=== PATIENT | male | born 1960 | race Caucasian/White ===

== ENCOUNTER 2017-03-14 09:19 | Emergency (ER) | payer OTHER ==
[2017-03-14 09:28] VITALS: BP 129/72
--- NOTE | 2017-03-14 09:55 | EDM.PDOC ---
ED HPI GENERAL MEDICAL PROBLEM - General Chief Complaint: Chest Pain Stated Complaint: CHEST PAIN Time Seen by Provider: 03/14/17 09:31 Source of Information: Reports: Patient History Limitations: Reports: No Limitations - History of Present Illness INITIAL COMMENTS - FREE TEXT/NARRATIVE: The patient is a 57-year-old male with a chief complaint of chest pain. He states that he noticed it yesterday when he woke up. The left side of his chest hurts. The pain is kind of a dull pressure. Pain has been constant. Moderate severity. No exacerbating or relieving factors. No history of similar symptoms previously. No provoking factors. Nonradiating. No shortness of breath. No cough. No fever or recent illness. No abdominal pain or vomiting. No lower extremity pain or swelling. No history of cardiac disease. He does have a history of a prior CVA with hemiparesis that resolved. Left Chest Pain Score (Numeric/FACES): 8 - Related Data Allergies Allergy/AdvReac Type Severity Reaction Status Date / Time No Known Allergies Allergy Verified 03/14/17 09:25 Home Meds: Home Meds Aspirin [Ecotrin] 325 mg PO DAILY 03/14/17 [History] Past Medical History - Past Health History Medical/Surgical History: Denies Medical/Surgical History HEENT History: Reports: Impaired Vision Cardiovascular History: Reports: High Cholesterol Neurological History: Reports: CVA - Infectious Disease History Infectious Disease History: Reports: Chicken Pox, Measles - Past Surgical History Other Cardiovascular Surgeries/Procedures: stroke x 2 Social & Family History - Tobacco Use Smoking Status *Q: Never Smoker Second Hand Smoke Exposure: No - Caffeine Use Caffeine Use: Reports: Coffee - Recreational Drug Use Recreational Drug Use: No ED ROS GENERAL - Review of Systems Review Of Systems: See Below Constitutional: Denies: Fever HEENT: Reports: No Symptoms Respiratory: Denies: Shortness of Breath Cardiovascular: Reports: Chest Pain Endocrine: Reports: No Symptoms GI/Abdominal: Denies: Abdominal Pain : Reports: No Symptoms Musculoskeletal: Reports: No Symptoms Skin: Reports: No Symptoms Neurological: Reports: No Symptoms ED EXAM, GENERAL - Physical Exam Exam: See Below Exam Limited By: No Limitations General Appearance: Alert, WD/WN, No Apparent Distress Eye Exam: Bilateral Eye: Normal Inspection Ears: Normal External Exam Nose: Normal Inspection Throat/Mouth: Normal Inspection, Normal Voice, No Airway Compromise Head: Atraumatic, Normocephalic Neck: Normal Inspection, Supple Respiratory/Chest: No Respiratory Distress, Lungs Clear, Normal Breath Sounds, Chest Non-Tender Cardiovascular: Normal Peripheral Pulses, Regular Rate, Rhythm, No Edema, No Murmur GI/Abdominal: Soft, Non-Tender, No Distention Back Exam: Normal Inspection Extremities: Normal Inspection. No: Pedal Edema, Leg Pain Neurological: Alert, Oriented, Normal Cognition, No Motor/Sensory Deficits Psychiatric: Normal Affect, Normal Mood Skin Exam: Warm, Dry, Intact, Normal Color, No Rash Course - Vital Signs Last Recorded V/S: Last Vital Signs Temp 36.2 C 03/14/17 09:25 Pulse 88 03/14/17 09:25 Resp 16 03/14/17 09:25 BP 129/72 03/14/17 09:25 Pulse Ox 96 03/14/17 09:25 - Orders/Labs/Meds Orders: Active Orders 24 hr Category Date Time Status Chest 1V Frontal [CR] Stat Exams 03/14/17 09:34 Taken Labs: Laboratory Tests 03/14/17 03/14/17 03/14/17 Range/Units 09:46 09:46 11:50 WBC 7.56 (4.23-9.07) K/mm3 RBC 4.58 L (4.63-6.08) M/mm3 Hgb 14.6 (13.7-17.5) gm/L Hct 43.1 (40.1-51.0) % MCV 94.1 H (79.0-92.2) fl MCH 31.9 (25.7-32.2) pg MCHC 33.9 (32.2-35.5) g/dl RDW Std Deviation 43.1 (35.1-43.9) fL Plt Count 284 (163-337) K/mm3 MPV 10.1 (9.4-12.3) fl Neut % (Auto) 54.3 (34.0-67.9) % Lymph % (Auto) 32.4 (21.8-53.1) % Nelson % (Auto) 10.3 (5.3-12.2) % Eos % (Auto) 2.2 (0.8-7.0) Baso % (Auto) 0.7 (0.1-1.2) % Neut # (Auto) 4.10 (1.78-5.38) K/mm3 Lymph # (Auto) 2.45 (1.32-3.57) K/mm3 Nelson # (Auto) 0.78 (0.30-0.82) K/mm3 Eos # (Auto) 0.17 (0.04-0.54) K/mm3 Baso # (Auto) 0.05 (0.01-0.08) K/mm3 Sodium 138 (136-145) mEq/L Potassium 4.0 (3.5-5.1) mEq/L Chloride 105 (98-107) mEq/L Carbon Dioxide 25 (21-32) mEq/L Anion Gap 12.0 (5-15) BUN 15 (7-18) mg/dL Creatinine 1.3 (0.7-1.3) mg/dL Est Cr Clr Drug Dosing 67.98 mL/min Estimated GFR (MDRD) 57 (>60) mL/min BUN/Creatinine Ratio 11.5 L (14-18) Glucose 116 H (74-106) mg/dL Calcium 9.3 (8.5-10.1) mg/dL Total Bilirubin 0.4 (0.2-1.0) mg/dL AST 20 (15-37) U/L ALT 26 (16-63) U/L Alkaline Phosphatase 62 (46-116) U/L Troponin I < 0.017 < 0.017 (0.00-0.056) ng/mL Total Protein 6.6 (6.4-8.2) g/dl Albumin 3.4 (3.4-5.0) g/dl Globulin 3.2 gm/dL Albumin/Globulin Ratio 1.1 (1-2) Meds: Medications Discontinued Medications Generic Name Dose Route Start Last Admin Trade Name Freq PRN Reason Stop Dose Admin Aspirin 324 mg 03/14/17 09:58 03/14/17 10:12 Aspirin PO 03/14/17 09:59 324 mg ONETIME ONE Administration - Re-Assessments/Exams Free Text/Narrative Re-Assessment/Exam: 03/14/17 12:55 Chest x-ray shows normal cardiac silhouette, no infiltrate or pneumothorax, normal study. EKG shows normal sinus rhythm, no significant ST/T-wave abnormality, no evidence of acute ischemia. Troponin 2 is negative. Remaining labs are also unremarkable. Patient's cardiovascular risk factors include hypercholesterolemia, possible family history, and his personal history of CVA given negative workup here today patient will follow up with his primary doctor for further care. Departure - Departure Time of Disposition: 12:30 Disposition: Home, Self-Care 01 Clinical Impression: Chest pain Qualifiers: Chest pain type: unspecified Qualified Code(s): R07.9 - Chest pain, unspecified Instructions: Nonspecific Chest Pain, [id number] Referrals: Zhen Basilio MD [Primary Care Provider] - Forms: ED Department Discharge Additional Instructions: 1. Follow up with your primary doctor as soon as possible for further care 2. Return to the ED if you have difficulty breathing, worsening chest pain, or any other concerning symptoms - My Orders Last 24 Hours: My Active Orders 03/14/17 09:34 Chest 1V Frontal [CR] Stat - Assessment/Plan Last 24 Hours: My Active Orders 03/14/17 09:34 Chest 1V Frontal [CR] Stat
[2017-03-14] MEDS ORDERED: Aspirin 81 MG Tab.Chew PO ONE (09:58)
--- NOTE | 2017-03-14 15:43 | CR ---
Chest: Portable view of the chest was obtained. Comparison: Prior chest x-ray of 05/21/[address] performed on 05/11/15. Heart size and mediastinum are normal. Lungs are clear. Mild degenerative spurring is seen within the spine. Impression: 1. Nothing acute is identified on portable chest x-ray. Diagnostic code #2
== END 2017-03-14 12:50 | disposition home or self-care (01) ==
LOC: JD.ED 09:19
DX: R07.9 Chest pain, unspecified (principal); E78.00 Pure hypercholesterolemia, unspecified; Z79.82 Long term (current) use of aspirin
CPT/HCPCS: 36415; 71010; 80053; 84484; 85025; 99285; A9270; 93010; 99284

== ENCOUNTER 2017-03-29 06:58 | Emergency (ER) | payer OTHER ==
[2017-03-29 07:20] VITALS: BP 136/77
[2017-03-29] MEDS ORDERED: Sodium Chloride 0.9% 10 ML Syringe FLUSH PRN (07:29)
[2017-03-29] MEDS ORDERED: Sodium Chloride 0.9% 1,000 ML IV SCH (07:30)
[2017-03-29] MEDS ORDERED: Albuterol/Ipratropium 3.0-0.5 MG/3 ML Neb Soln NEB ONE (07:32)
--- NOTE | 2017-03-29 07:36 | EDM.PDOC ---
ED HPI GENERAL MEDICAL PROBLEM - General Chief Complaint: Respiratory Problem Stated Complaint: COUGH Time Seen by Provider: 03/29/17 07:21 Source of Information: Reports: Patient History Limitations: Reports: No Limitations - History of Present Illness INITIAL COMMENTS - FREE TEXT/NARRATIVE: The patient presents with fever, chills, cough, and headache. He also has no appetite and he lost about 13 pounds. He has a right sided headache. It is better now. He has chest pain that is worse with coughing. He feels short of breath. He has no nausea, vomiting or abdominal pain. He has no bodyaches. He just feels tired and weak. He had a stroke a year and 1/2 ago. He has an event recorder implanted. He has no history of asthma or COPD. He does not smoke. This has all been going on for 1 week. Onset: Gradual Duration: Week(s): (1) Location: Reports: Chest Quality: Reports: Other (Tightness) Severity: Moderate Improves with: Reports: Immobilization Worsens with: Reports: Breathing (and cough) Associated Symptoms: Reports: Chest Pain, Cough, Fever/Chills, Headaches, Shortness of Breath. Denies: Nausea/Vomiting Chest Pain Score (Numeric/FACES): 4 - Related Data Allergies Allergy/AdvReac Type Severity Reaction Status Date / Time No Known Allergies Allergy Verified 03/14/17 09:25 Home Meds: Home Meds Aspirin [Ecotrin] 325 mg PO DAILY 03/14/17 [History] Azithromycin [IJD: Azithromycin] 250 mg PO DAILY #6 tab 03/29/17 [Rx] Codeine/Promethazine [Phenergan with Codeine] 5 - 10 ml PO Q6HR PRN #300 ml [Rx] Past Medical History - Past Health History Medical/Surgical History: Denies Medical/Surgical History HEENT History: Reports: Impaired Vision Other HEENT History: wears eyeglasses Cardiovascular History: Reports: High Cholesterol Neurological History: Reports: CVA - Infectious Disease History Infectious Disease History: Reports: Chicken Pox, Measles - Past Surgical History Other Cardiovascular Surgeries/Procedures: stroke x 2, implanted cardiac recorder. Social & Family History - Tobacco Use Smoking Status *Q: Never Smoker Second Hand Smoke Exposure: No - Caffeine Use Caffeine Use: Reports: Coffee, Soda - Recreational Drug Use Recreational Drug Use: No ED ROS GENERAL - Review of Systems Review Of Systems: See Below Constitutional: Reports: Fever, Chills, Malaise, Weakness, Fatigue HEENT: Reports: No Symptoms Respiratory: Reports: Shortness of Breath, Cough Cardiovascular: Reports: Chest Pain Endocrine: Reports: Fatigue GI/Abdominal: Reports: Anorexia. Denies: Abdominal Pain, Diarrhea, Nausea, Vomiting : Reports: No Symptoms Musculoskeletal: Reports: No Symptoms Skin: Reports: No Symptoms Neurological: Reports: No Symptoms ED EXAM, GENERAL - Physical Exam Exam: See Below Exam Limited By: No Limitations General Appearance: Alert, No Apparent Distress Ears: Normal External Exam Nose: Normal Inspection Head: Atraumatic, Normocephalic Neck: Normal Inspection Respiratory/Chest: No Respiratory Distress, Wheezing (mild) Cardiovascular: Regular Rate, Rhythm, No Edema, No Murmur GI/Abdominal: Soft, Non-Tender, No Organomegaly, No Mass Back Exam: Normal Inspection Extremities: Normal Inspection EKG INTERPRETATION EKG Date: 03/29/17 Time: 07:52 Rhythm: NSR Rate (Beats/Min): 90 [place]: Normal P-Wave: Present QRS: Normal ST-T: Normal QT: Normal EKG Interpretation Comments: Q waves in the anterior leads Course - Vital Signs Last Recorded V/S: Last Vital Signs Temp 97.6 F 03/29/17 07:05 Pulse 92 03/29/17 07:05 Resp 12 03/29/17 07:05 BP 136/77 03/29/17 07:05 Pulse Ox 97 03/29/17 07:32 - Orders/Labs/Meds Orders: Active Orders 24 hr Category Date Time Status Cardiac Monitoring [RC] . DIRECTED Care 03/29/17 07:29 Active EKG Documentation Completion [RC] STAT Care 03/29/17 07:30 Active Peripheral IV Care [RC] . DIRECTED Care 03/29/17 07:30 Active RT Aerosol Therapy [RC] ASDIRECTED Care 03/29/17 07:32 Active Chest 2V [CR] Stat Exams 03/29/17 07:30 Taken Sodium Chloride 0.9% [Normal Saline] 1,000 ml Med 03/29/17 07:30 Active IV .BOLUS Sodium Chloride 0.9% [Saline Flush] Med 03/29/17 07:29 Active 10 ml FLUSH ASDIRECTED PRN Peripheral IV Insertion Adult [OM.PC] Stat Oth 03/29/17 07:29 Ordered Medication Orders Sodium Chloride (Normal Saline) 1,000 mls @ 1,000 mls/hr IV .BOLUS BHASKAR Last Admin: 03/29/17 07:57 Dose: 1,000 mls/hr Sodium Chloride (Saline Flush) 10 ml FLUSH ASDIRECTED PRN PRN Reason: Keep Vein Open Last Admin: 03/29/17 08:00 Dose: 10 ml Labs: Laboratory Tests 03/29/17 03/29/17 Range/Units 07:50 07:50 WBC 9.96 H (4.23-9.07) K/mm3 RBC 4.34 L (4.63-6.08) M/mm3 Hgb 13.6 L (13.7-17.5) gm/L Hct 40.1 (40.1-51.0) % MCV 92.4 H (79.0-92.2) fl MCH 31.3 (25.7-32.2) pg MCHC 33.9 (32.2-35.5) g/dl RDW Std Deviation 41.4 (35.1-43.9) fL Plt Count 319 (163-337) K/mm3 MPV 9.8 (9.4-12.3) fl Neut % (Auto) 71.4 H (34.0-67.9) % Lymph % (Auto) 13.6 L (21.8-53.1) % Sumner % (Auto) 13.0 H (5.3-12.2) % Eos % (Auto) 1.6 (0.8-7.0) Baso % (Auto) 0.2 (0.1-1.2) % Neut # (Auto) 7.12 H (1.78-5.38) K/mm3 Lymph # (Auto) 1.35 (1.32-3.57) K/mm3 [place]ner # (Auto) 1.29 H (0.30-0.82) K/mm3 Eos # (Auto) 0.16 (0.04-0.54) K/mm3 Baso # (Auto) 0.02 (0.01-0.08) K/mm3 Sodium 138 (136-145) mEq/L Potassium 4.0 (3.5-5.1) mEq/L Chloride 101 (98-107) mEq/L Carbon Dioxide 23 (21-32) mEq/L Anion Gap 18.0 H (5-15) BUN 20 H (7-18) mg/dL Creatinine 1.3 (0.7-1.3) mg/dL Est Cr Clr Drug Dosing 67.95 mL/min Estimated GFR (MDRD) 57 (>60) mL/min BUN/Creatinine Ratio 15.4 (14-18) Glucose 107 H (74-106) mg/dL Calcium 9.0 (8.5-10.1) mg/dL Total Bilirubin 0.5 (0.2-1.0) mg/dL AST 19 (15-37) U/L ALT 22 (16-63) U/L Alkaline Phosphatase 57 (46-116) U/L Troponin I < 0.017 (0.00-0.056) ng/mL Total Protein 7.4 (6.4-8.2) g/dl Albumin 2.9 L (3.4-5.0) g/dl Globulin 4.5 gm/dL Albumin/Globulin Ratio 0.6 L (1-2) Meds: Medications Generic Name Dose Route Start Last Admin Trade Name Freq PRN Reason Stop Dose Admin Sodium Chloride 1,000 mls @ 1,000 mls/hr 03/29/17 07:30 03/29/17 07:57 Normal Saline IV 1,000 mls/hr .BOLUS BHASKAR Administration Sodium Chloride 10 ml 03/29/17 07:29 03/29/17 08:00 Saline Flush FLUSH 10 ml ASDIRECTED PRN Administration Keep Vein Open Discontinued Medications Generic Name Dose Route Start Last Admin Trade Name Freq PRN Reason Stop Dose Admin Albuterol/Ipratropium 3 ml 03/29/17 07:32 03/29/17 07:48 Duoneb 3.0-0.5 Mg/3 Ml NEB 03/29/17 07:33 3 ml ONETIME ONE Administration - Re-Assessments/Exams Free Text/Narrative Re-Assessment/Exam: 03/29/17 07:35 I ordered an IV NS 1L bolus, EKG, CXR, duoneb and labs. 03/29/17 09:10 His EKG shows nothing acute. His CXR shows no infiltrate. His WBC was slightly elevated at 9.96. His Hgb was a little low at 13.6. His CMP was negative. His troponin was negative. He feels better. He has bronchitis. I will get him on some zithromax and phenergan with codeine. Departure - Departure Time of Disposition: 09:11 Disposition: Admitted As Inpatient 65 Condition: Good Clinical Impression: Bronchitis - Discharge Information Prescriptions: Codeine/Promethazine [Phenergan with Codeine] 5 - 10 ml PO Q6HR PRN #300 ml PRN Reason: Cough Azithromycin [IJD: Azithromycin] 250 mg PO DAILY #6 tab Referrals: Zhen Basilio MD [Primary Care Provider] - 1 Week Forms: ED Department Discharge, ED Return to Work/School Form Additional Instructions: Take the zithromax 2 pills on day 1 and 1 pill on day 2 through 5. Take the phenergan with codeine 5 to 10mLs every 6 hours as needed for cough. Please return if you are worse. - My Orders Last 24 Hours: My Active Orders 03/29/17 07:29 Cardiac Monitoring [RC] . DIRECTED Sodium Chloride 0.9% [Saline Flush] 10 ml FLUSH ASDIRECTED PRN Peripheral IV Insertion Adult [OM.PC] Stat 03/29/17 07:30 EKG Documentation Completion [RC] STAT Peripheral IV Care [RC] . DIRECTED Chest 2V [CR] Stat Sodium Chloride 0.9% [Normal Saline] 1,000 ml IV .BOLUS 03/29/17 07:32 RT Aerosol Therapy [RC] ASDIRECTED - Assessment/Plan Last 24 Hours: My Active Orders 03/29/17 07:29 Cardiac Monitoring [RC] . DIRECTED Sodium Chloride 0.9% [Saline Flush] 10 ml FLUSH ASDIRECTED PRN Peripheral IV Insertion Adult [OM.PC] Stat 03/29/17 07:30 EKG Documentation Completion [RC] STAT Peripheral IV Care [RC] . DIRECTED Chest 2V [CR] Stat Sodium Chloride 0.9% [Normal Saline] 1,000 ml IV .BOLUS 03/29/17 07:32 RT Aerosol Therapy [RC] ASDIRECTED
--- NOTE | 2017-03-30 10:42 | CR ---
Chest: Two views of the chest were obtained. Comparison: Prior chest x-ray of 03/14/17. Patchy increased density within the left base is seen. Lungs otherwise are clear. Heart size and mediastinum are normal. Slight degenerative change is noted within the spine. Impression: 1. Patchy increased density within the left lung base. Please correlate if patient has any symptoms of pneumonia. Findings otherwise could represent changes from aspiration or atelectasis. Diagnostic code #3
== END 2017-03-29 09:42 | disposition critical access hospital (66) ==
LOC: JD.ED 06:58
DX: J40 Bronchitis, not specified as acute or chronic (principal); E78.00 Pure hypercholesterolemia, unspecified; Z79.82 Long term (current) use of aspirin; Z79.2 Long term (current) use of antibiotics
CPT/HCPCS: 36415; 71020; 80053; 84484; 85025; 87804; 93005; 94640; 96360; 99285; J7040; J7050; 93010; 99284

== ENCOUNTER 2021-02-01 12:14 | Emergency (ER) | payer OTHER ==
[2021-02-01] MEDS ORDERED: Sodium Chloride 0.9% 10 ML Syringe FLUSH PRN (13:17)
--- NOTE | 2021-02-01 13:48 | CT ---
Head CT Technique: Multiple axial sections through the brain were obtained. Intravenous contrast was not utilized. Reconstructed coronal and sagittal images were obtained. Comparison: Prior head CT study of 05/05/15. Findings: Ventricles along with basal cisterns and sulci over the convexities are felt to be within normal limits for the patient's age. Small lacunar infarct is noted within the left basal ganglia involving the head of the caudate nucleus. Low density is also seen within the medial anterior left parietal region. No additional abnormal parenchymal densities are seen. No evidence of intracranial hemorrhage is seen. No midline shift or mass-effect is seen. Mild atherosclerotic calcification is seen within the carotid siphon. No acute calvarial abnormality is seen. Visualized paranasal sinuses and mastoid sinuses show nothing acute. Impression: 1. Two small old infarcts, one within the head of the caudate nucleus and second within the medial anterior left parietal region. 2. No acute intracranial abnormality is appreciated. Note: If patient's symptoms are sufficient, MRI study could then be considered. Diagnostic code #3
[2021-02-01] MEDS ORDERED: Gadobenate Dimeglumine 529 MG/ML 20 ML SDV IVPUSH ONE (15:47)
[2021-02-01] MEDS ORDERED: Sodium Chloride 0.9% 10 ML Syringe FLUSH SCH (16:00)
--- NOTE | 2021-02-01 16:04 | MR ---
MR angiogram of brain Technique: Noncontrast MR angiogram study of the brain was obtained centered at the [place] of [place]. Reconstructed coronal and sagittal images were obtained. Findings: Basilar artery is supplied by the right vertebral artery. Left posterior cerebral artery is supplied by the basilar artery. Right posterior cerebral artery is supplied by a smaller posterior communicating branch from the anterior circulation. Smaller posterior right cerebral artery is noted with normal-sized left posterior cerebral artery. Carotid arteries are patent into the middle cerebral arteries. Right A1 segment is smaller than the left A1 segment. Anterior cerebral arteries are normal. Middle cerebral arteries are also normal. No discrete aneurysm is seen. Impression: 1. Small posterior communicating branch supplying the right posterior cerebral artery from the anterior circulation. Proximal right cerebral artery is smaller than the left cerebral artery. 2. Small right A1 segment supplying the anterior communicating artery. 3. Communicating artery supplied by a right vertebral artery. Left vertebral artery is not seen on this exam. 4. Other portions of the MR angiogram study appear within normal limits. Diagnostic code #3
--- NOTE | 2021-02-01 16:04 | MR ---
MRI brain Technique: T1 sagittal; T2, T2 FLAIR, T1 and diffusion axial; T1 coronal as well as gradient echo coronal images were obtained. Findings: Ventricles along with basal cisterns and sulci over the convexities appear within normal limits for the patient's age. Very small left vertebral artery is seen with dominant right vertebral artery supplying the basilar artery. Normal signal void is seen within the major cerebral arteries within the skull base. Small area of increased signal is seen within the posterior left basal ganglia compatible with small vessel ischemic demyelination change. Minimal signal is seen within portions of the left periventricular white matter compatible with small vessel ischemic demyelination change. Slightly larger area of increased signal is seen within the posterior left parietal region anteriorly the medial aspect. This is compatible with previous small infarct. Small low signal abnormality is seen within the left head of the caudate nucleus which is compatible with old infarct. There are no acute diffusion abnormalities being seen. No acute paranasal sinus findings or mastoid sinus findings are seen. Impression: 1. Small areas of signal are seen which appear to be due to small vessel ischemic demyelination change. Two small abnormalities compatible with old infarcts are seen on CT study. 2. There are no acute diffusion abnormalities being identified. 2. Small left vertebral artery with dominant right vertebral artery is noted. 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 Diagnostic code #2
--- NOTE | 2021-02-01 16:41 | MR ---
MR angiogram of neck Technique: MR angiogram study was obtained of the neck following contrast administration . Reconstructed coronal and sagittal images were obtained. Comparison: No prior neck imaging. Findings: There is focal narrowing of the proximal external carotid artery on the right side which has stenosis of approximately 58 percent. Internal carotid artery on the right side shows only minimal stenosis which is felt to be of no hemodynamic significance. Left internal carotid artery shows long area of narrowing. Proximal internal carotid artery shows narrowing of around 57 percent. Common carotid arteries are patent. Brachiocephalic and subclavian arteries are patent. Very small left vertebral artery is seen most likely developmental. Very dominant right vertebral artery is seen supplying the basilar artery. Impression: 1. 58 percent narrowing within the right external carotid artery. 2. 57 percent narrowing within the proximal left internal carotid artery which shows long stenosis. 3. 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 Diagnostic code #3
--- NOTE | 2021-02-01 17:07 | EDM.PDOC ---
ED HPI GENERAL MEDICAL PROBLEM - General Chief Complaint: Neuro Symptoms/Deficits Stated Complaint: NUMBNESS TO HANDS Time Seen by Provider: 02/01/21 13:09 Source of Information: Reports: Patient History Limitations: Reports: No Limitations - History of Present Illness INITIAL COMMENTS - FREE TEXT/NARRATIVE: The patient presents with left arm numbness. He was at work about 10am and grabbed his glasses and felt numbness in his left hand and it felt like someone was pulling his left hand. That lasted about 5 minutes. He went to the nurses office. He works at [employer]. She did some blood pressures and his blood pressure did go down when he stood up. He felt a little lightheaded with this. He tried to get into his doctor but they were busy. He had a CVA 6 years ago. The stroke left no neurologic deficits. He wore a loop recorder for 3 years and they found nothing. He was also on aspirin. He stopped the aspirin a few years ago. He has no fever, chills, cough, chest pain, headache, shortness of breath, abdominal pain, nausea or vomiting. He has no numbness or weakness anywhere else. He has no trouble speaking. Onset: Sudden Duration: Minutes: (5) Severity: Mild Improves with: Reports: None Worsens with: Reports: None Associated Symptoms: Reports: No Other Symptoms Headache Pain Score (Numeric/FACES): 6 - Related Data Allergies Allergy/AdvReac Type Severity Reaction Status Date / Time No Known Allergies Allergy Verified 02/01/21 13:17 Home Meds: Home Meds atorvaSTATin Calcium [Lipitor] 20 mg PO DAILY #30 tablet 02/01/21 [Rx] Past Medical History - Past Health History Medical/Surgical History: Denies Medical/Surgical History HEENT History: Reports: Impaired Vision Other HEENT History: wears eyeglasses Cardiovascular History: Reports: High Cholesterol Neurological History: Reports: CVA Other Neuro History: 2014 - Infectious Disease History Infectious Disease History: Reports: Chicken Pox, Measles - Past Surgical History Other Cardiovascular Surgeries/Procedures: stroke x 2, implanted cardiac recorder. Social & Family History - Tobacco Use Tobacco Use Status *Q: Never Tobacco User - Caffeine Use Caffeine Use: Reports: Coffee, Soda ED ROS GENERAL - Review of Systems Review Of Systems: See Below Constitutional: Reports: No Symptoms HEENT: Reports: No Symptoms Respiratory: Reports: No Symptoms Cardiovascular: Reports: No Symptoms Endocrine: Reports: No Symptoms GI/Abdominal: Reports: No Symptoms : Reports: No Symptoms Musculoskeletal: Reports: No Symptoms Neurological: Reports: Other (left hand numbness) ED EXAM, NEURO - Physical Exam Exam: See Below Exam Limited By: No Limitations General Appearance: Alert, No Apparent Distress Ears: Normal External Exam Nose: Normal Inspection Head Exam: Atraumatic, Normocephalic Neck: Normal Inspection Respiratory/Chest: No Respiratory Distress, Lungs Clear, Normal Breath Sounds Cardiovascular: Regular Rate, Rhythm, No Edema, No Murmur GI/Abdominal: Soft, Non-Tender, No Organomegaly, No Mass Neurological: Alert, No Motor/Sensory Deficits, Oriented x 3 #1 Interpretation EKG Date: 02/01/21 Time: 13:58 Rhythm: NSR Rate (Beats/Min): 60 [place]: Normal P-Wave: Present QRS: Normal ST-T: Normal QT: Normal Course - Vital Signs Last Recorded V/S: Last Vital Signs Temp 98.5 F 02/01/21 13:12 Pulse 64 02/01/21 14:00 Resp 24 H 02/01/21 14:00 BP 125/88 02/01/21 14:00 Pulse Ox 98 02/01/21 14:00 - Orders/Labs/Meds Orders: Active Orders 24 hr Category Date Time Status Cardiac Monitoring [RC] . DIRECTED Care 02/01/21 13:17 Active Peripheral IV Care [RC] . DIRECTED Care 02/01/21 13:17 Active Sodium Chloride 0.9% [Saline Flush] Med 02/01/21 13:17 Active 10 ml FLUSH ASDIRECTED PRN Sodium Chloride 0.9% [Saline Flush] Med 02/01/21 16:00 Active 20 ml FLUSH ASDIRECTED Peripheral IV Insertion Adult [OM.PC] Stat Oth 02/01/21 13:17 Ordered Medication Orders Sodium Chloride (Sodium Chloride 0.9% 10 Ml Syringe) 10 ml FLUSH ASDIRECTED PRN PRN Reason: Keep Vein Open Last Admin: 02/01/21 14:10 Dose: 10 ml Documented by: CHUY Sodium Chloride (Sodium Chloride 0.9% 10 Ml Syringe) 20 ml FLUSH ASDIRECTED BHASKAR Last Admin: 02/01/21 15:57 Dose: 20 ml Documented by: ART Labs: Laboratory Tests 02/01/21 02/01/21 02/01/21 Range/Units 13:24 13:24 13:24 WBC 8.59 (4.23-9.07) K/mm3 RBC 4.76 (4.63-6.08) M/mm3 Hgb 15.2 D (13.7-17.5) gm/dl Hct 45.8 (40.1-51.0) % MCV 96.2 H D (79.0-92.2) fl MCH 31.9 (25.7-32.2) pg MCHC 33.2 (32.2-35.5) g/dl RDW Std Deviation 45.3 H (35.1-43.9) fL Plt Count 301 (163-337) K/mm3 MPV 10.9 (9.4-12.3) fl Neut % (Auto) 55.6 (34.0-67.9) % Lymph % (Auto) 30.3 (21.8-53.1) % [place] % (Auto) 10.7 (5.3-12.2) % Eos % (Auto) 2.7 (0.8-7.0) Baso % (Auto) 0.6 (0.1-1.2) % Neut # (Auto) 4.78 (1.78-5.38) K/mm3 Lymph # (Auto) 2.60 (1.32-3.57) K/mm3 [place] # (Auto) 0.92 H (0.30-0.82) K/mm3 Eos # (Auto) 0.23 (0.04-0.54) K/mm3 Baso # (Auto) 0.05 (0.01-0.08) K/mm3 PT 9.8 (9.7-12.0) SECONDS INR < 0.93 APTT 23.9 (21.7-31.4) SECONDS Sodium 140 (136-145) mEq/L Potassium 5.0 (3.5-5.1) mEq/L Chloride 105 (98-107) mEq/L Carbon Dioxide 29 (21-32) mEq/L Anion Gap 11.0 (5-15) BUN 14 (7-18) mg/dL Creatinine 1.2 (0.7-1.3) mg/dL Est Cr Clr Drug Dosing 70.06 mL/min Estimated GFR (MDRD) > 60 (>60) mL/min BUN/Creatinine Ratio 11.7 L (14-18) Glucose 92 (70-99) mg/dL POC Glucose (70-99) mg/dL Calcium 9.2 (8.5-10.1) mg/dL Total Bilirubin 0.4 (0.2-1.0) mg/dL AST 21 (15-37) U/L ALT 34 (16-63) U/L Alkaline Phosphatase 63 (46-116) U/L Troponin I < 0.017 (0.00-0.056) ng/mL Total Protein 7.3 (6.4-8.2) g/dl Albumin 3.7 (3.4-5.0) g/dl Globulin 3.6 gm/dL Albumin/Globulin Ratio 1.0 (1-2) 02/01/21 Range/Units 13:24 WBC (4.23-9.07) K/mm3 RBC (4.63-6.08) M/mm3 Hgb (13.7-17.5) gm/dl Hct (40.1-51.0) % MCV (79.0-92.2) fl MCH (25.7-32.2) pg MCHC (32.2-35.5) g/dl RDW Std Deviation (35.1-43.9) fL Plt Count (163-337) K/mm3 MPV (9.4-12.3) fl Neut % (Auto) (34.0-67.9) % Lymph % (Auto) (21.8-53.1) % [place] % (Auto) (5.3-12.2) % Eos % (Auto) (0.8-7.0) Baso % (Auto) (0.1-1.2) % Neut # (Auto) (1.78-5.38) K/mm3 Lymph # (Auto) (1.32-3.57) K/mm3 [place] # (Auto) (0.30-0.82) K/mm3 Eos # (Auto) (0.04-0.54) K/mm3 Baso # (Auto) (0.01-0.08) K/mm3 PT (9.7-12.0) SECONDS INR APTT (21.7-31.4) SECONDS Sodium (136-145) mEq/L Potassium (3.5-5.1) mEq/L Chloride (98-107) mEq/L Carbon Dioxide (21-32) mEq/L Anion Gap (5-15) BUN (7-18) mg/dL Creatinine (0.7-1.3) mg/dL Est Cr Clr Drug Dosing mL/min Estimated GFR (MDRD) (>60) mL/min BUN/Creatinine Ratio (14-18) Glucose (70-99) mg/dL POC Glucose 87 (70-99) mg/dL Calcium (8.5-10.1) mg/dL Total Bilirubin (0.2-1.0) mg/dL AST (15-37) U/L ALT (16-63) U/L Alkaline Phosphatase (46-116) U/L Troponin I (0.00-0.056) ng/mL Total Protein (6.4-8.2) g/dl Albumin (3.4-5.0) g/dl Globulin gm/dL Albumin/Globulin Ratio (1-2) Meds: Medications Generic Name Dose Route Start Last Admin Trade Name Freq PRN Reason Stop Dose Admin Sodium Chloride 10 ml 02/01/21 13:17 02/01/21 14:10 Sodium Chloride 0.9% 10 Ml Syringe FLUSH 10 ml ASDIRECTED PRN Administration Keep Vein Open Sodium Chloride 20 ml 02/01/21 16:00 02/01/21 15:57 Sodium Chloride 0.9% 10 Ml Syringe FLUSH 20 ml ASDIRECTED [place]AR Administration Discontinued Medications Generic Name Dose Route Start Last Admin Trade Name Freq PRN Reason Stop Dose Admin Gadobenate Dimeglumine 20 ml 02/01/21 15:47 02/01/21 15:57 Gadobenate Dimeglumine 529 Mg/Ml 20 Ml Sdv IVPUSH 02/01/21 15:48 20 ml ONETIME ONE Administration - Re-Assessments/Exams Free Text/Narrative Re-Assessment/Exam: 02/01/21 17:09 I ordered an EKG, CT of his head and labs. His last time known well was 10am this morning. His EKG shows a NSR with no acute changes. His CBC and CMP look good. His troponin is negative. His PT and PTT look good. The CT of his head shows two small old infarcts, one within the head of he caudate nucleus and second within the medial anterior left parietal region. No acute intracranial abnormality is appreciated. I was able to get an MRI of his brain and it showed small area of signal are seen which appear to be due to small vessel ischemic demyelination change. Two small abnormalities compatible with old infarcts are seen on CT study. There are no acute diffusion abnormalities being identified. Small left vertebral artery with dominant right vertebral artery is noted. 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 His MRI angio of his Head shows small posterior communicating branch supplying the right posterior cerebral artery from the anterior circulation. Proximal right cerebral artery is smaller than the left cerebral artery. Small right A1 segment supplying the anterior communicating artery. Communicating artery supplied by a right vertebral artery. Left vertebral artery is not seen on this exam. Other portions of the MR angiogram study appear within normal limits. The MR angiogram of the neck shows 58% narrowing within the right external carotid artery. 57% narrowing within the proximal left internal carotid artery which shows long stenosis. 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 I called [facility] in [place] and talked with Dr Turner the neurologist control valve technician and he recommended the patient go on aspirin and a statin. I will discharge him home. Departure - Departure Time of Disposition: 17:30 Disposition: Home, Self-Care 01 Condition: Good Clinical Impression: TIA (transient ischemic attack) - Discharge Information *PRESCRIPTION DRUG MONITORING PROGRAM REVIEWED*: Not Applicable *COPY OF PRESCRIPTION DRUG MONITORING REPORT IN PATIENT VINCENT: Not Applicable Prescriptions: atorvaSTATin Calcium [Lipitor] 20 mg PO DAILY #30 tablet Referrals: Zhen Basilio MD [Primary Care Provider] - 1 Week Forms: ED Department Discharge Additional Instructions: Take an aspirin daily. 81 mg is fine. Take lipitor 20mg daily. Follow up with Dr Basilio within a week. Please return if you are worse. Sepsis Event Note (ED) - Evaluation Sepsis Screening Result: No Definite Risk - Focused Exam Vital Signs: Vital Signs Temp Pulse Resp BP Pulse Ox 02/01/21 14:00 64 24 H 125/88 98 02/01/21 13:12 98.5 F 88 18 154/88 H 100 - My Orders Last 24 Hours: My Active Orders 02/01/21 13:17 Cardiac Monitoring [RC] . DIRECTED Peripheral IV Care [RC] . DIRECTED Sodium Chloride 0.9% [Saline Flush] 10 ml FLUSH ASDIRECTED PRN Peripheral IV Insertion Adult [OM.PC] Stat 02/01/21 16:00 Sodium Chloride 0.9% [Saline Flush] 20 ml FLUSH ASDIRECTED - Assessment/Plan Last 24 Hours: My Active Orders 02/01/21 13:17 Cardiac Monitoring [RC] . DIRECTED Peripheral IV Care [RC] . DIRECTED Sodium Chloride 0.9% [Saline Flush] 10 ml FLUSH ASDIRECTED PRN Peripheral IV Insertion Adult [OM.PC] Stat 02/01/21 16:00 Sodium Chloride 0.9% [Saline Flush] 20 ml FLUSH ASDIRECTED
[2021-02-01 17:44] VITALS: BP 143/88; PULSE 62
== END 2021-02-01 17:44 | disposition home or self-care (01) ==
LOC: JD.ED 12:14
DX: G45.9 Transient cerebral ischemic attack, unspecified (principal); E78.00 Pure hypercholesterolemia, unspecified; Z79.899 Other long term (current) drug therapy
CPT/HCPCS: 36415; 70450; 70544; 70548; 70551; 80053; 82947; 84484; 85025; 85610; 85730; 93005; 99284; A9577; 93010

== ENCOUNTER 2022-10-30 05:18 | Emergency (ER) | payer OTHER ==
[2022-10-30 06:42] VITALS: BP 131/87; PULSE 89
== END 2022-10-30 06:27 | disposition home or self-care (01) ==
LOC: JD.ED 05:18
DX: T63.461A Toxic effect of venom of wasps, accidental (unintentional), initial encounter (principal); E78.00 Pure hypercholesterolemia, unspecified; Z91.048 Other nonmedicinal substance allergy status; W57.XXXA Bitten or stung by nonvenomous insect and other nonvenomous arthropods, initial encounter
CPT/HCPCS: 99281; 99283